=== PATIENT | female | born 1995 | race Caucasian/White ===

== ENCOUNTER 2020-09-20 01:13 | Emergency (ER) | payer OTHER ==
--- NOTE | 2020-09-20 01:18 | ERPHSYRPT ---
- History of Present Illness Time Seen by Provider: 09/20/20 01:17 Source: patient Exam Limitations: no limitations Physician History: This is a 25-year-old female who presents to the emergency department approximately 2-day history of sore throat in the back of her throat. Patient felt she might of had the flu a week or 2 ago. Her boyfriend had similar symptoms. However 2 days ago she began having sore throat. She noticed something in the back of her throat and felt it was an epiglottis. He has not had any fevers. She has had no nausea or vomiting or diarrhea. She has no abdominal pain. Timing/Duration: gradual onset Severity: mild ENT Location: throat Prearrival Treatment: no prearrival treatment Modifying Factors: Improves With: nothing Associated Symptoms: denies symptoms Allergies/Adverse Reactions: No Known Drug Allergies Allergy (Unverified 09/20/20 01:29) Home Medications: Buspirone HCl 1 tab PO DAILY 09/20/20 [History] Escitalopram Oxalate 1 tab PO DAILY 09/20/20 [History] Travel Risk - International Travel Have you traveled outside of the country in past 3 weeks: No - Coronavirus Screening Are you exhibiting any of the following symptoms?: No Close contact with a COVID-19 positive Pt in past 14-21 Days: No - Vaccine Status Have you recieved a Covid-19 vaccination: No - Review of Systems Constitutional: No Symptoms Eyes: No Symptoms Ears, Nose, & Throat: Throat Pain Respiratory: No Symptoms Cardiac: No Symptoms Abdominal/Gastrointestinal: No Symptoms Genitourinary Symptoms: No Symptoms Musculoskeletal: No Symptoms Skin: No Symptoms Neurological: No Symptoms Psychological: No Symptoms Endocrine: No Symptoms Hematologic/Lymphatic: No Symptoms Immunological/Allergic: No Symptoms All Other Systems: Reviewed and Negative - Past Medical History Pertinent Past Medical History: No Neurological History: No Pertinent History ENT History: No Pertinent History Cardiac History: No Pertinent History Respiratory History: No Pertinent History Endocrine Medical History: No Pertinent History Musculoskeletal History: No Pertinent History GI Medical History: No Pertinent History History: No Pertinent History Female Reproductive Disorders: No Pertinent History - Past Surgical History Past Surgical History: No - Nursing Vital Signs Nursing Vital Signs: Initial Vital Signs Pulse Rate 88 09/20/20 01:16 Respiratory Rate 16 09/20/20 01:16 Blood Pressure 138/88 09/20/20 01:16 O2 Sat by Pulse Oximetry 98 04/10/21 01:16 Pain Scale Pain Intensity 2 - Physical Exam General Appearance: no apparent distress, alert, anxiety Eye Exam: bilateral eye: normal inspection, PERRL, EOMI Ear Exam: bilateral ear: auricle normal, canal normal, TM normal Nasal Exam: normal inspection Throat Exam: pharynx swelling, pharynx tenderness (Able to visualize the epiglottis. It may be mildly red and mildly swollen.) Neck Exam: normal inspection, non-tender, supple, full range of motion, trachea midline Cardiovascular/Respiratory Exam: chest non-tender, no respiratory distress, No rhonchi, No wheezing Abdominal Exam: non-tender Neurologic Exam: alert, oriented x 3, cooperative, chocolate finisher II-XII nml as tested, normal mood/affect, nml cerebellar function, nml station & gait, sensation nml Skin Exam: normal color, warm, dry SpO2 Interpretation: normal O2 Delivery: Room Air - Course Nursing assessment & vital signs reviewed: Yes - Departure Departure Disposition: Home Clinical Impression: Pharyngitis Condition: Stable Critical Care Time: No Additional Instructions: Drink plenty of fluids. Take medication as prescribed. Follow-up with your primary care physician for further management. Prescriptions: Prednisone 10 mg [Deltasone 10 mg] 10 mg PO TID #12 tablet Cephalexin Mh 500 mg [Keflex 500 mg] 500 mg PO TID #21 capsule
[2020-09-20 01:56] VITALS: O2SAT 98
[2020-09-20] MEDS ORDERED: KEFLEX 500 MG PO ONE (02:01)
[2020-09-20] MEDS ORDERED: DELTASONE 20 MG PO ONE (02:04)
[2020-09-20] MEDS ORDERED: DELTASONE 20 MG ONE (02:09)
[2020-09-20] MEDS ORDERED: KEFLEX 500 MG ONE (02:09)
[2020-09-20 02:42] VITALS: BP 111/80; PULSE 78
== END 2020-09-20 02:40 | disposition home or self-care (01) ==
LOC: ED 01:13
DX: J02.9 Acute pharyngitis, unspecified (principal)
CPT/HCPCS: 99283; A9270-GY